=== PATIENT | female | born 1960 | race Caucasian/White ===

== ENCOUNTER 2018-08-09 07:14 | Emergency (ER) | payer OTHER ==
[~2018-08-09] VITALS: Ht 162.6 cm; Wt 75.8 kg
[~2018-08-09 07:14] MED LIST: AMBIEN CR 6.26.25 MG PO; AMLODIPINE BESYL5 MG PO; B COMPLEX-VITA1 EACH PO; BACLOFEN 10 MG10 MG PO; CALCIUM 600 +1 EAC1 PO; CLONAZEPAM 0.50.5 M1 PO; DESYREL300 MG PO; DICLOFENAC SODI75 M1 PO; FISH OIL 1,0001 EAC5 PO; FLEXERIL PO; LEVOTHYROXIN0.025 MG PO; NAPROSYN500 MG PO; NORCO 5-325 TA1 EACH PO; PREMARIN0.45 MG PO; PROZAC40 MG PO; SAPHRIS10 MG SL; SENNA PO; TRIAMTERENE-HC1 EAC1 PO; VALTREX 500 MG500 MG PO; VEETIDS 250MG250 M1 PO; VITAMIN D1000 UNI1 PO; WELLBUTRIN XL300 M1 PO; ZOCOR40 MG PO
[2018-08-09 07:41] LABS: ABSOLUTE NEUTROPHILS 5.2 thou/uL (1.4-8.2); BASOPHILS 0.7 % (0.0-2.0); EOSINOPHILS 3.2 % (0.0-3.0); HEMATOCRIT 35.1 % (37.0-47.0); MCH 32.6 pg (26.0-34.0); MCHC 34.3 g/dL (28.0-37.0); MCV 95.2 fL (80.0-100.0); MONOCYTES 5.9 % (1.0-8.0); PLATELET COUNT 285 thou/uL (150-400); POLYS 62.2 % (36.0-66.0); RBC 3.69 mil/uL (4.20-5.00); RDW 12.8 % (10.5-14.5); WBC 8.4 thou/uL (4.0-11.0)
[2018-08-09 07:48] LABS: ANION GAP 7 mmol/L (7-16); BUN 14 mg/dL (7-18); CALCIUM 8.7 mg/dL (8.5-10.1); CHLORIDE 104 mmol/L (98-107); CO2 27 mmol/L (21-32); CREATININE 1.1 mg/dL (0.6-1.0); GLUCOSE 113 mg/dL (74-106); POTASSIUM 4.9 mmol/L (3.5-5.1)
[2018-08-09 07:52] LABS: SODIUM 138 mmol/L (136-145)
[2018-08-09 07:56] LABS: URINE BILIRUBIN NEGATIVE (Negative); URINE BLOOD NEGATIVE (Negative); URINE CLARITY CLEAR; URINE COLOR YELLOW; URINE GLUCOSE-RANDOM* NEGATIVE (Negative); URINE KETONES NEGATIVE (Negative); URINE LEUKOCYTES-REFLEX 2+ (Negative); URINE NITRITE-REFLEX NEGATIVE (Negative); URINE PROTEIN (DIPSTICK) NEGATIVE (Negative); URINE UROBILINOGEN 0.2 E.U./dl (0.2-1.0)
[2018-08-09 07:57] LABS: MAGNESIUM 1.6 mg/dL (1.8-2.4); TROPONIN-I <0.06 ng/mL (<0.06)
--- NOTE | 2018-08-09 08:05 | EKG ---
[place] [address] [facility] [place] [address] ELECTROCARDIOGRAM REPORT Name: LAVONNEYUDI Room #: [facility] [id number] ������������������ Admission: 08/09/18 ������������������ Attend Phys: Discharge: ������������������ Date of : 56 Report #: [id number] ����������������������������������������������������������������� [id number] THIS REPORT FOR: //name// [facility] ED Test Date: 2018-08-09 Test Time: 07:27:28 Pat Name: YUDI BANERJEE Department: Room: Gender: F Chief Fundraising Officer: : 1960 Requested By: Bartolome Vogel Order Number: [id number] MD: Casey Potter Measurements Intervals [place] Rate: 47 P: 57 NE: 185 QRS: -10 QRSD: 101 T: 28 QT: 485 QTc: 429 Interpretive Statements Sinus bradycardia Otherwise normal tracing No previous ECG available for comparison Electronically Signed On 08-09-2018 8:05:35 CDT by Casey Potter [email or web address] ��������������������������������������������� <ELECTRONICALLY SIGNED> ���������������������������������������� By: Casey Potter MD, [facility] ��������������������������������������������� 08/09/18 0805 0727 0727 Casey Potter MD, FACC /EPI
[2018-08-09 08:08] LABS: CASTS None Seen /LPF (None Seen); CRYSTALS None Seen /LPF (None Seen); SQUAMOUS None Seen /LPF (0-3); URINE RBC None Seen /HPF (0-2); URINE WBC-REFLEX >25 Many /HPF (0-5)
[2018-08-09] MEDS ORDERED: KEFLEX500 M1 PO (08:24)
[2018-08-09 08:29] VITALS: BP 138/76
== END 2018-08-09 08:25 | disposition home or self-care (01) ==
LOC: ER 07:14
PROVIDERS: Emergency Medicine
DX: N39.0 Urinary tract infection, site not specified (principal); M54.2 Cervicalgia; I10 Essential (primary) hypertension; E05.90 Thyrotoxicosis, unspecified without thyrotoxic crisis or storm; Z90.710 Acquired absence of both cervix and uterus; Z98.890 Other specified postprocedural states; W18.30XA Fall on same level, unspecified, initial encounter; Y93.89 Activity, other specified; Y92.89 Other specified places as the place of occurrence of the external cause; Y99.8 Other external cause status

== ENCOUNTER 2020-11-09 19:31 | Inpatient (IN) | payer OTHER ==
[~2020-11-09 19:31] MED LIST changes: +KEFLEX500 M1 PO
[2020-11-10 04:28] VITALS: BP 156/78
--- NOTE | 2020-11-10 04:38 | NUR ---
PATIENT ADMITTED VIA WHEELCHAIR FROM ER. SHE WAS TRANSFERRED FROM [facility]. UPON ARRIVAL TO UNIT SHE IS AAOX4. SHE IS CALM AND COOPERATIVE. VSS. SIGNS IN VOLUNTARILY. STATES THAT SHE IS READY TO GET HELP AND STOP DRINKING. STATES THAT SHE HAS BEEN DRINKING A PINT OF VODKA FOR THE PAST 5-6 WEEKS. NOTED THAT SHE HAS SWOLLEN R GREAT TOR. PT STATES THAT SHE STEPPED ON SOME GLASS RECENTLY. PATIENT IS ABLE TO AMBULATE UNDER HER OWN POWER. DENIES PAIN OR NEEDS AT THIS TIME. NOTIFIED APPROPRIATE PHYSICIANS AND RECEIVED ADMISSION ORDERS. WILL CONTIUE TO MONITOR FOR CHANGES IN STATUS.
[2020-11-10 06:57] LABS: CHOLESTEROL 167 mg/dL (<200); HDL CHOLESTEROL 57 mg/dL (>40); LDL CHOLESTEROL 91 mg/dL (<100); SERUM ASSESSMENT Clear; TC:HDL 2.9 Ratio (Not establshd); TRIGLYCERIDE 99 mg/dL (<150); VLDL 20 mg/dL (<40)
[2020-11-10 08:57] VITALS: BP 159/66
[2020-11-10 13:22] LABS: FOLIC ACID 26.5 ng/mL (8.6-58.9)
--- NOTE | 2020-11-10 17:41 | NUR ---
Assumed pt care at 0700. Pt was alert and oriented to person and situation. Assessments completed, vss. Active bowel sound, lungs clear. Denies si/hi, co pain. Tylenol administered as ordered. Took meds whole, with thin liquid. Ambulates with slow gait. Pt prefered to use a w/c due to R foot pain. Pt c/o of concern of glass in her R foot. ad copy writer assess R foot, and did not note any entry of glass. DR Newberry was notified. Dr Newberry assess pt. R foot x-tray was ordered for pt. At this time pt is in wheeling self around the unit. Will continue to monitor.
[2020-11-10 20:06] VITALS: BP 122/68
[2020-11-11 01:06] LABS: GLYCOHEMOGLOBIN (HGB A1C) 4.7 % (4.8-5.6)
--- NOTE | 2020-11-11 01:35 | NUR ---
PATIENT HAS BEEN IN HER ROOM IN BED ALL EVENING. SHE STATES THAT HER RIGHT FOOT WAS NOT HURTING SINCE SHE'S BEEN OFF OF IT. XRAY OF RIGHT FOOT CAME BACK NEGATIVE OF ANY FINDINGS. PATIENT IS ON CIWA Q 4 HOURS. SHE STATES SHE HAS TOTALLY WITHDRAWN FROM THE ETOH. CIWA NEGATIVE AT THIS ASSESSMENT. PATIENT DENIES PAIN, SI/HI/AVH. SHE STATES SHE HAS NOT FELT DEPRESSED SHE WAS A DAY OR SO AGO. SHE IS A/0X3. SHE TOOK HER HS MEDS WHOLE WITH WATER. SHE STARTED NEW ORDER OF TRAZADONE 300MG AT TONIGHT. BED IN LOW POSITION AND BED ALARM IS ON. ONGOING CIWA ASSESSMENT Q4HR. PATIENT SLEEPING AT THIS TIME. CONTINUING TO MONITOR. DENIES ANXIETY AND HAS BEEN CALM AND COOPERATIVE.
[2020-11-11 06:35] VITALS: BP 139/71
--- NOTE | 2020-11-11 10:24 | NUR ---
PATIENT CARE ASSUMED AT 0700 - SLEEPING WHEN ARRIVING ON UNIT. APPROACHED IN ROOM AND ACKNOWLEDGED CHANGE OF SHIFT. QUIET - STATED NO DISCOMFORT CURRENTLY IN RIGHT FOOT BUT APPEARS TO BE FAVORING WHEN AMBULATING WITH SHUFFLE AND LIMP. PATIENT MED COMPLIANT. GOOD APPETITE ATE 75 PERCENT BREAKFAST. PATIENT HAS BEEN COMPLIANT WITH MASK REQUIREMENT. PARTICIPATED VERY LITTLE IN GROUP ACITIVITY OF MUSIC AND EXERCISE. HEART RATE STRONG AND STEADY AND LUNGS CLEAR ON AUSCULTATION. STATED NO BOWEL ISSUES. WILL CONTINUE TO MONTIOR PATIENT FOR SAFETY AND ANY CONCERNS AND ADDRESS ACCORDINGLY. VITALS STABLE WHEN TAKEN IN AM.
[2020-11-11 20:04] VITALS: BP 102/77
--- NOTE | 2020-11-12 00:44 | NUR ---
PATIENT WAS UP WALKING THE HALLS AND DINING ROOM. SHE DID NOT ENGAGE WITH OTHER PATIENTS. SHE ASKED TO USE THE PHONE TO CALL HER DAUGHTER. SHE WAS CONCERNED ABOUT HER CAT THAT SHE LEFT WITH A FRIEND. HELPED HER TRY TO FIND THE DAUGHTER'S PHONE NUMBER WITHOUT LUCK. PATIENT ANXIOUS ABOUT HER CAT AND WAS GIVEN LORAZEPAM 1MG PO WITH HER HS MEDS. PATIENT ASKED FOR A FRESH CHANGE OF CLOTHES AND WAS GIVEN THIS TO CHANGE INTO. SHE STATES HER FOOT IS NOT HURTING TONIGHT. PATIENT WENT TO BED ON HER OWN. BED IN LOW POSITON AND BED ALARM ON. PATIENT DENIES PAIN, SI/HI/AVH. SHE HAS BEEN WITHDRAWN BUT PLEASANT AND COOPERATIVE. PATIENT AMBULATES WITH STEADY GAIT. ROUTINE ROUNDS TO ASSESS SAFETY AND STATUS OF PATIENT.
[2020-11-12 10:04] VITALS: BP 102/48
--- NOTE | 2020-11-12 10:41 | NUR ---
Nutrition: REC daily vitamin
--- NOTE | 2020-11-12 12:17 | NUR ---
Assumed pt care at 0700. Pt was alert and oriented to person, place and situation. Calm and cooperative with care. Assessments completed, vss. Denies si/ hi, Denies pain at this time. Took meds whole with thin liquid, no difficulty noted. Ambulates with a slow gait. Makes need known to staff. Continent of bowel and bladder. Ate all meals. Independent with care. Pt is not a fall risk. At this time pt is in the day room finishing up her lunch. Will continue to monitor.
--- NOTE | 2020-11-12 14:43 | NUR ---
11-12-2020--2:45 PM--Call to [facility] ([phone]). They will fax me a [id number] of information for Marcella to sign and they will provide me with information when it is returned to them.
--- NOTE | 2020-11-12 15:28 | NUR ---
11-12-2020--3:30 PM--Patoient signed ATA for [facility] for verbal and written reports and re: who the psychiatrist and pillowcase cutter are. Faxed back to [facility].
--- NOTE | 2020-11-12 15:35 | NUR ---
11-12-2020--15:35 PM--call attempted to patients daughter Alem at number found in patient's chart. ([phone]) this number was a cell phone in [place]. His name was Regulo and he had never heard of an Alem. Will search further for information on patient's daughter.
[2020-11-12 20:23] VITALS: BP 115/56
--- NOTE | 2020-11-13 00:08 | NUR ---
Assumed pt's care this pm shift. Alert and oriented to her name. Know's she's in a hospital, voiced name as [facility]. Right at shift change, pt was asking to speak with her cat. Pt voiced that she was feeling dizzy. Nursing assisted pt to go sit in the dayroom. Pt took meds per emar. Pt currently in bed, sleeping. Nursing to continue to monitor.
--- NOTE | 2020-11-13 05:55 | NUR ---
Pt continues to sleep well in her room. Independent of toileting. Nursing to continue to monitor.
--- NOTE | 2020-11-13 08:56 | NUR ---
11-13-2020--[facility] faxed me a copy of a treatment plan that was done on 03/16/2020 over the phone. It contained very little information. Will attempt to call and talk to the Air Support Control Officer this date.
[2020-11-13 09:09] VITALS: BP 110/55
--- NOTE | 2020-11-13 09:12 | NUR ---
11-13-2020--9:10 AM--call to security to bring patient's phone up to the unit to see if patient can find her daughter's number on the phone so we can make contact with the family. Patient states her daughter is not so she has Brown as a last name and she lives in [place]. Security stated they would broing the phone up.
--- NOTE | 2020-11-13 12:18 | NUR ---
Assumed pt care at 0700. pt was alert and oriented to person, place and situation. Assessments completed, vss. Took meds whole with thin liquid, no difficulty noted. Ambulates with a w/c this shift. Calm, and cooperative with care. Pt was incontinent of bladder upon AM assessments. Cleaned and change by engineering technical writer. Pt was worried about her cat. Pt wanted staff to call her cat's phone. CT scan of the head was completed this shift. At this time pt is eating lunch. Will continue to monitor.
--- NOTE | 2020-11-13 14:50 | NUR ---
11-13-2020--14:50--Patient's phone was brought to [address] [place] [address] by security. The phone needed to be charged but daughters phone number was not on phone. There was a phone number for her ER contact Noemy Blair ([phone]) and her son Alex Brown ([phone]). I will attempt to call [facility] [place].
--- NOTE | 2020-11-13 14:55 | NUR ---
11-13-2020--15:00--Call returned to Ridge Hansen at [facility]. He reports hot lines have been made to the state by the hospital ([place]) where patient ends up when she gets drunk) and the [facility]. He stated he was hopeful the doctor would be filling out the paperwork to get patient a guardian. He stated all the patient did "was ride around in her electric w/c and drink". I explained I didn't know what the doctor would decide to do he was still evaluating her. He offered further help if needed.
--- NOTE | 2020-11-13 15:00 | NUR ---
11-13-2020--15:00--[employer] international trade compliance manager called security to come and get Elizabeths personal belongings. They said they would come and get them but it would be a little while. They were left at the nurses station.
[2020-11-13 19:04] VITALS: BP 119/69
--- NOTE | 2020-11-14 04:33 | NUR ---
PATIENT IS ALERT AND ORIENTED. MODERATE ASSISTANCE WITH CARE. ABLE TO VERBALIZE NEEDS. SHE DENIES PAINS/SI/AVH/HI. SHE TOOK HER MEDS WHOLE, LUNGS ARE CLEAR BS ACTIVE X4 QAUDS. ABD IS SOFT NON TENDER. BED IS LOW AND LOCKED. PATINET IS CONTINET OF BOWEL AND BLADDER.Q 12 MINUTES CHECKS IS ONGOING. CONTINUE CARE
--- NOTE | 2020-11-14 07:48 | NUR ---
11-14-2020--7:30 AM--Son's phone number was obtained [facility] patient's help using her cell phone. Son's name is Jose Cruz ( ). Call made to son and advised him his darreler was a patient here. He talked about her beng as she is for a lot of years and he was under the assumption that patient was already in a NH and was assisted in finding one with her CM from [facility]. I inquired if she had a DPOA and he stated his sister used to be but her mother's behaviors had become burdensome to her and she stepped out of the situation. Jose Cruz stated he would be willing to be the DPOA if she won't choose a memory care unit on her own. He reports he works from home and the best time to call him is between 10-12. Told him physician may want to talk to him and have a family meeting and he was agreeable to this. He states if she refuses to choose a safe home, or make him DPOA he would like to talk to her and he can probably get her to listen to him. Information will be provided to Doctor and team this AM.
[2020-11-14 09:04] VITALS: BP 125/70
[2020-11-14 09:05] VITALS: BP 125/70
[2020-11-14 10:08] LABS: HIV ANTIBODY Non Reactive (Non Reactive)
--- NOTE | 2020-11-14 14:23 | NUR ---
11-14-2020--10:45 AM--Call to son to determine if his sister had paperwork showing her as DPOA. He stated he would text her to find out and we set up a family meeting for tomorrow at 10:00 AM.
--- NOTE | 2020-11-14 14:57 | NUR ---
FLAT AFFECT-MINIMAL VERBAL RESPONSES-RESPONSES TO QUESTIONS ASKED ARE [id number] ACKNOWLEDGE FEELING DEPRESSED AND ANXIOUS AT TIMES WHEN ASKED ABOUT WHAT HAD LED TO ADMISSION HERE-ALTHOUGH RATES ANXIETY CURRENTLY A 6 AND DEPRERSSION A 3 OR 4. DENIES SI/SH/HI-GAIT UNSTEADY AT TIMES-VS WNL.
[2020-11-14 19:37] VITALS: BP 126/77
--- NOTE | 2020-11-14 22:30 | NUR ---
PATIENT CARE WAS RESUMED AT 1900. SHE IS ALERT AND ORIENTED X3 AND SHE IS CONTINENT OF BOWEL AND BLADDER.SHE IS ABLE TO VERBALIZE HER CONCERN. DENIES AND DISCOMFORT AT THIS TIME. SHE TOOK HER MEDS WHOLE. BED IS LOW, LOCKED AND ALARMED. [id number] CHECK IS ONGOING. NO CONCERN NOTED AT THIS TIME CONTINUE CARE.
[2020-11-15 09:18] VITALS: BP 117/76
--- NOTE | 2020-11-15 11:27 | NUR ---
11-15-2020--10:00 AM--Met with patient, and Dr. Grant and called patient's son to join in the family meeting about who could be named as a DPOA. Son was agreeable to being the DPOA and Dr. Puente explained to son and patient why this was necessary. Marcella made her son Jose Cruz her DPOA. I read the paperwork to her and asked about her understanding. Paperwork was completed and the Supervisor Heavy Equipment (who is a notary) came up and notarized the paper. A copy was given to patient and a copy was given to oil recovery unit operator to place in patients' file. Director, Wendy Morrissey, scanned the document into the copier and e-mailed it to Jose Cruz at [email or web address].
--- NOTE | 2020-11-15 13:56 | NUR ---
11-15-2020--13:30--Woke patient up and asked her to come to group. She wanted to sleep.
--- NOTE | 2020-11-15 17:40 | NUR ---
PATIENT IS ALERT AND ORIENTED X4, PATIENT SITTING ON A WHEEL/CHAIR IN THE DAY ROOM WHEN CARE WAS ASSUMED AT 0700, PATIENT CALM AND PLEASANT WITH CARE, ACTIVE BOWEL SOUND WITH SOFT ABDOMEN, BREATH SOUND CLEAR, SHE COMPLAINED OF PAIN AND TYLENOL PRN WAS GIVEN, SHE TOOK HER MEDICATION WHOLE, SHE IS CONTINENT OF BOWEL AND BLADDLER, SHE AMBULATE WITH WHEEH/CHAIR DUE TO SOME WEAKNESS, SHE DENIES SI/HI
[2020-11-15 19:33] VITALS: BP 116/69
[2020-11-15 21:06] LABS: SYPHILIS AB Non Reactive (Non Reactive)
--- NOTE | 2020-11-16 00:45 | NUR ---
PATIENT CARE WAS RESUMED AT 1900. SHE WAS IN BED ALERT AND ORIENTED. MODERATE ASSIST WITH CARE. TOOK HER PILLS WHOLE. SHE DENIES PAINS/SI/AVH/HI. BS ACTIVE X4 QUAD. LUNGS ARE CLEAR X 4 QUAD. Q 12MINUTES CHECK ONGOING. BED IS LOW, LOCKED AND ALARMED. CONTINUE CARE
--- NOTE | 2020-11-16 01:02 | NUR ---
ASSUMED CARE OF PATIENT AT 0015. PATIENT CURRENTLY SLEEPING WITH EYES CLOSED. RESPIRATIONS EVEN AND UN LABORED. BED IN LOW POSITION. PATIENT APPEARS TO BE IN COMFORTABLE POSITION ON LEFT SIDE. ROUTINE ROUNDS TO ASSESS STATUS AND SAFETY OF PATIENTS.
--- NOTE | 2020-11-16 06:20 | NUR ---
PATIENT UP IN WC. SHE STATES SHE WET THE BED AGAIN. STATES SHE HAS BEEN DOING THIS LATELY. DENIES BURNING OR URGENCY OF URINATION. PATIENT A/0X2 THIS MORNING. DENIES PAIN. PATIENT SITTING QUIETLY IN DINING ROOM WATCHING TV. CONTINUING TO MONITOR.
[2020-11-16 08:28] VITALS: BP 114/81
--- NOTE | 2020-11-16 13:53 | NUR ---
11-16-2020--GROUP--Marcella did not attend.
--- NOTE | 2020-11-16 13:53 | NUR ---
RT Progress Note- Marcella has been present in the day room throughout each day, as well as for most recreation therapy groups. Marcella has begun contributing to groups more throughout the last half of this week, however remains guarded and reserved. She displays some confusion and difficulty understanding tasks and requires thourough directions to be able to participate to her best ability. She has not displayed aggression. EMBROIDERY SPECIALIST will encourage continued participation throughout her admission.
--- NOTE | 2020-11-16 14:15 | NUR ---
CARE OF PATIENT WAS ASSUMED AT 0700, PATIENT SITTING ON THE BED, ALERT AND ORIENTED X3, COOPERATIVE WITH CARE, LUNGS CLEAR, ACTIVE BOWEL SOUND WITH SOFT ABDOMEN, VSS, SKIN INTACT, NO EDEMA NOTED, PATIENT TOOK MEDICATION WHOLE, SHE REFUSED TO WALK WITH THE PHYSICAL THERAPY, PATIENT AMBULATE ON A STEADY GAIT, CONTINENT OF BLADDER AND BOWEL, NO BEHAVIOR CHANGE, PATIENT PATICIPATED IN GROUP AND ATE ALL HER MEAL IN THE ROOM, SHE DENIES SI/HI
[2020-11-16 19:48] VITALS: BP 92/56
--- NOTE | 2020-11-17 02:57 | NUR ---
PATIENT IS AAOX3. SHE IS WITHDRAWN AND ISOLATES TO HER ROOM. EXHIBITS FLAT AFFECT. STATES THAT SHE IS DOING OKAY. TOOK ALL OF HER MEDICATIONS WITHOUT PROMPTING. DENIES PAIN OR NEEDS. VITAL SIGNS STABLE. NO S/S OF WITHDRAWAL SYMPTOMS.
[2020-11-17 09:57] VITALS: BP 107/66
--- NOTE | 2020-11-17 16:36 | NUR ---
HAS BEEN OUT OF ROOM MAJORITY OF AM-DID REPORT LE HURTING AND IS REQUESTING TYLENOL PO PRN AT APPROX 1100 FOR THIS-TYLENOL 650MG GIVEN PO PRN WITH VERBALIZED GOOD RESULTS-LEGS ELEVATED IN RECLINER WHICH HELPED WELL-DOES HAVE TRACE PEDAL EDEMA I ANKLES/FEET BILAT. LATER REQUESTED MUSCLE RELAXANT FOR LEGS HURTING AND FLEXERIL 10MG GIVEN PO PRN AT 1530-WHEN ASKED AT 1600 IF THIS HAD HELPED STATES "I JUST WANTED TO TAKE A NAP"DID
[2020-11-17 19:54] VITALS: BP 86/32
[2020-11-17 21:31] LABS: URINE BILIRUBIN NEGATIVE (Negative); URINE BLOOD NEGATIVE (Negative); URINE CLARITY CLEAR; URINE COLOR YELLOW; URINE GLUCOSE-RANDOM* NEGATIVE (Negative); URINE KETONES NEGATIVE (Negative); URINE LEUKOCYTES-REFLEX NEGATIVE (Negative); URINE NITRITE-REFLEX NEGATIVE (Negative); URINE PROTEIN (DIPSTICK) NEGATIVE (Negative); URINE SPECIFIC GRAVITY 1.015 (1.005-1.035); URINE UROBILINOGEN 0.2 E.U./dl (0.2-1.0)
--- NOTE | 2020-11-18 01:45 | NUR ---
PATIENT RESTING IN HER ROOM AAOX2. STATES THAT SHE HAS HAD A GOOD DAY. DOES NOT INTERACT MUCH WITH PEERS. DENIES PAIN OR NEEDS. SHE CONTINUES TO UTILIZE WHEELCHAIR FOR TRANSPORTATION. VITAL SIGNS WNL. COMPLIANT WITH MEDICATION AND TREATMENT. NO S/S OF DISTRESS. PATIENT IS CALM AND COOPERATIVE. WILL CONTINUE TO MONITOR FOR CHANGES IN STATUS.
[2020-11-18 09:38] VITALS: BP 112/66
--- NOTE | 2020-11-18 14:39 | NUR ---
patient care assumed at 0700, patient alert and oriented x3, patient sitting on the bed awake, calm and pleasant with assessment, breath sound clear, vss, active bowel sound with soft abdomen, patient complained of pain tylenol was given, she took her medication whole, patient ambulate with wheel chair, she can be incontinent some times, no behavior change, patient denies si/hi, will continue to monitor for safety and behavior.
[2020-11-18 19:25] VITALS: BP 137/69
--- NOTE | 2020-11-19 02:40 | NUR ---
PATIENT RESTING IN THE COMMON AREA UPON ENTRANCE TO THE UNIT. PT IS AAOX3. SHE IS COOPERATIVE BUT IRRITABLE TONIGHT. STATES THAT SHE WAS GOING TO BED AND REQUESTED HER HS MEDICATIONS. PT TOOK ALL MEDICATIONS PRESCRIBED. NO S/S OF DISTRESS NOTED. DENIES PAIN OR NEEDS. WILL CONTINUE TO MONITOR FOR CHANGES IN STATUS.
--- NOTE | 2020-11-19 08:37 | NUR ---
11-19-2020--08:00 AM--Call to patient's son who gave me the name of one NH with a memory care unit that he would like me to contact--Call to [facility] to talk to Shahla on marketing ([phone]). Not in message left to return my call to determine if they take Medicaid and of there is an opening. (This was the only one he called this weekend and he wasn't able to talk to anyone.) He had no other suggestions
[2020-11-19 09:03] VITALS: BP 110/70
--- NOTE | 2020-11-19 16:14 | NUR ---
Assumed pt care at 0700. Pt was alert and oriented to person, situation and time. Assessments completed, vss. Denies si/hi, c/o pain. Pain Meds administered as ordered. Took meds whole, no difficulty noted. Calm and cooperative with care. Continent of bowel and bladder. Ambulates with a slow gait due to pain in her right foot. Attended groups, worked with the physical therapy. At this time pt is in the day room. Will continue to monitor.
[2020-11-19 19:15] VITALS: BP 106/73
--- NOTE | 2020-11-19 21:25 | NUR ---
AT ONSET OF ODD JOB LABORER, PT WAS RESTING IN BED AWAKE. THIS SHIFT PT WAS ALERT AND ORIENTED TO SELF, PLACE, AND TIME. WHEN ASKED WHAT BROUGHT PT TO THE HOSPITAL PT STATED SHE BROUGHT HERSELF TO THE HOSPITAL BECAUSE SHE WAS DETOXING AND DID NOT WANT TO HAVE "CONVULSIONS." PT WAS CALM, PLEASANT AND COOPERATIVE. COMPLIANT WITH MEDICATION AND VITAL SIGNS. PT DENIED SI, HI AND AVH. PT STATED SHE FELT A LITTLE DEPRESSED BECAUSE SHE MISSED HER CAT. PT STATED SHE IS NOT SURE HOW HER CAT IS DOING AND NO ONE IS TAKING CARE OF THE CAT WHILE SHE IS IN THE HOSPITAL. WHEN ASKED WHERE SHE WILL BE STAYING AFTER SHE LEAVES [facility], PT RESPONDED SHE DOES NOT KNOW YET BUT WILL PROBABLY GO TO A JAIL. PT'S AFFECT WAS CONSTRICTED BUT PT REPORTED HER MOOD WAS POSITIVE. FALL PRECAUTIONS IN PLACE.
[2020-11-20 09:03] VITALS: BP 107/71
--- NOTE | 2020-11-20 11:14 | NUR ---
11-20-2020--11:00 AM--More referrals for patient were sent this AM. Call [facility] who stated they do not accept [place] Medicaid.
--- NOTE | 2020-11-20 13:43 | NUR ---
Call received from Leticia who is taking care of this patient's cat. Leticia reports that the cat is out of food. Also reports that patient was going to be taking the cat to a longterm to surrender the cat. Leticia reports that she needs consent from patient in order to surrender the cat. Due to DPOA being enacted, spoke with SCOTT Billingsley. Jose Cruz reports that there is not a possibility of patient keeping the cat. Jose Cruz will call Leticia at [phone] to speak about the cat.
--- NOTE | 2020-11-20 14:54 | NUR ---
11-20-2020--13:00--GROUP--Patient had gone to her room and was lying down after lunch. I told her group was about to start and asked her to join us. Patient participated appropriately and fully in the group sharing thoughts and situations about our topic of anger and where in our bodies we first start feeling anger.
--- NOTE | 2020-11-20 14:57 | NUR ---
11-20-2020--15:00--Patient came to my office and knocked on the door and wanted to talk to me. She stated she has been incontinent for a couple of nights and thought she might have a yeast infection. I went with her to the nurses station to report this to the RN so she would tell the physician.
--- NOTE | 2020-11-20 15:55 | NUR ---
11-20-2020--16:00--Call from Cat and one of her facilities may have an opening. She needed a copy of the DPOA paperwork. Copy faxed to her.
--- NOTE | 2020-11-20 17:42 | NUR ---
Assumed pt care at 0700. Pt was alert and oriented to person and time. Assessments completed, vss. lungs clear, active bowel sound. Denies si/hi, c/o pain. Pain meds and ice packs administered as ordered. Took meds whole, no difficulty noted. Ambulates with a walker. Continent of bowel and bladder this shift. Make needs known to staff. Participated in groups. At this time, no sign of acute distress noted. Pt is in the day room currently. WILL CONTINUE TO MONITOR.
[2020-11-20 19:49] VITALS: BP 93/49
--- NOTE | 2020-11-21 00:44 | NUR ---
AT ONSET OF SHIFT PT WAS RESTING IN BED AWAKE. THIS SHIFT PT WAS ALERT AND ORIENTED TO SELF AND PLACE. AFFECT WAS BROAD. PT WAS OVERALL CALM AND PLEASANT, BUT EXPRESSED FRUSTRATION WITH HAVING A ROOMMATE AND BEING WOKEN UP THROUGHOUT THE NIGHT DUE TO STAFF ROUNDING. PT DENIED SI, HI AND AVH. PT WAS COMPLIANT WITH MEDICATION AND VITAL SIGNS. PT STATED THAT SHE HAS BEEN "WETTING THE BED" A LOT. RN PROVIDED PT WITH INCONTINENT BRIEFS. PT STATED SHE THINKS SHE HAS A YEAST INFECTION. PT WAS TREATED FOR YEAST INFECTION. RN ASKED PT IF SHE THINKS SHE HAS A YEAST INFECTION OR A UTI. PT RESPONDED "I THINK I HAVE A UA." PT AMBULATES INDEPENDENTLY.
--- NOTE | 2020-11-21 10:35 | NUR ---
11-21-2020--10:35--Patient came to my office stating she hasn't had her clonipin since she's been here. (States she got here the 17?). Will ask Doctor about it.
--- NOTE | 2020-11-21 13:22 | NUR ---
PATIENT HAS BEEN UP, AND OUT ON THE UNIT, AMBULATE WITH ASSIST OF WALKER. PATIENT TOOK ALL MEDICATION WHOLE WITHOUT DIFFICULTY, SHE IS EATING MEALS, AND DRINKING FLUID WELL. PATIENT DENIES SUICIDAL/HOMICIDAL IDEATION, SHE DENIES DEPRESSION, RATES ANXIETY 03/04. PATIENT REQUESTING TO HAVE DR. NASIMA ABBASI AWARE, NO NEW ORDER NOTED AT THIS TIME. PATIENT DENIES AUDITORY/VISUAL HALLUCINATION. SHE RATES RIGHT LEG PAIN /, ICE PACK APPLIED. AFFECT IS SAD, MOOD IS EUTHYMIC. NO SIGN OF ACUTE DISTRESS NOTED AT THIS TIME, WILL MONITOR FOR SAFETY.
--- NOTE | 2020-11-21 13:38 | NUR ---
11-21-2028--13:45--call to Jose Cruz (DPOA & son) to advise we had found a placement for his mom. I advised him as soon as I found out the details of the facility (address and phone number, etc.) I would let him know. He was agreeable to this.
[2020-11-21 18:17] LABS: URINE BILIRUBIN NEGATIVE (Negative); URINE BLOOD NEGATIVE (Negative); URINE CLARITY SL CLOUDY; URINE COLOR YELLOW; URINE GLUCOSE-RANDOM* NEGATIVE (Negative); URINE KETONES NEGATIVE (Negative); URINE LEUKOCYTES-REFLEX 3+ (Negative); URINE NITRITE-REFLEX NEGATIVE (Negative); URINE PROTEIN (DIPSTICK) NEGATIVE (Negative); URINE UROBILINOGEN 0.2 E.U./dl (0.2-1.0)
[2020-11-21 18:49] LABS: SQUAMOUS 4-10 Moderate /LPF (0-3); URINE WBC-REFLEX >25 Many /HPF (0-5)
[2020-11-21 18:50] LABS: URINE RBC 1-2 Rare /HPF (NONE SEEN)
[2020-11-21 19:43] VITALS: BP 114/63
--- NOTE | 2020-11-21 21:59 | NUR ---
PATIENT RESTING IN HER ROOM AAOX2. DENIES PAIN OR NEEDS. STATES THAT SHE IS TIRED AND READY FOR MEDICATION. PT STATES THAT SHE HAS NOT WASHED HER HAIR SINCE THE DAY THAT SHE WAS ADMITTED. SGE IS COOPERATIVE AND FOLLOWING ALL COMMANDS. NO DISTRESS NOTED. SAFETY PRECAUTIONS IN PLACE. WILL CONTINUE TO MONITOR FO RCHANGES IN STATUS.
[2020-11-22 09:07] VITALS: BP 109/70
--- NOTE | 2020-11-22 10:08 | NUR ---
11-22-2020--10:15--Patient wanted to talk to the Doctor. I advised the Doctor and she waited in her room for him. She states all he gave her was one pill for her yeast infection. I explained to her that is all it takes these days to get rid of a yeast infection. She stated her understanding but then moved on to her leg hurting and ruminating about her cat. (Her memory is short and I anticipate some of these same questions will need to be answered.) She wanted to call he son Katiuska (DPOA). He was very kind and loving when answering her questions and reassuring her that her cat is okay. He stated her neoighbors have been caring for it and it is going to the pound today to be adopted. She was emphatic about wanting her cat back and wanting to see it. I explained that probably was not going to happen. She states she has had the cat for 10 years. I assured her some good family/person will adopt him and he will be fine. I also explained that her next placement probably won't let her have a cat. She stated her understanding and again stated she wanted him back or to see him. Tatiana (RN) was able to convince patient to take a shower. (She continues to look very unkempt and ADL's may be something staff at the placement will continually hae to cue and redirect her to do.) Walked patient to nurses' station and advised her she needs to ask for things she needs or wants as nobody can read her mind.
[2020-11-22 10:33] VITALS: BP 109/70
--- NOTE | 2020-11-22 11:15 | NUR ---
RT Progress Note- Marcella has been present in both the milieu and recreation therapy groups throughout her second week of admission. She has become more animated and vocal in group discussions which is a great improvement. She continues to frequently talk about her cat but is able to address other concerns however including futeristic goals after discharge such as an improved living environment and healthier lifestyle. She does remain disoriented at times and is accepting of therapist reorienting her. MATERIAL EXPEDITER will continue to encourage patient to further reach goals.
--- NOTE | 2020-11-22 11:55 | NUR ---
Resummed care from overnight shift this am. Patient was siting in room on bed quietly resting. All medications were given to patient. Patient present calm and cooperative and stated that she took a shower this morning. Denies si/hi/auditory hallucinations at present. Bowel sounds WNL and present. Lung sounds clear bilaterally. Participated in groups. No further concerns at this time. Will continue to monitor patient for safety and behaviors.
[2020-11-22 19:14] VITALS: BP 110/68
--- NOTE | 2020-11-23 01:22 | NUR ---
PATIENT HAS BEEN RESTING IN BED SINCE BEGINNING OF SHIFT. PATIENT IS ALERT AND ORIENTED X 4, CONTINENT OF BOWEL AND BLADDER, MEDICATION COMPLIANT AND GAIT IS STEADY AND STRONG. PATIENT DENIES ALL PSYCH.
[2020-11-23 08:10] VITALS: BP 118/58
[2020-11-23 09:03] VITALS: BP 118/58
--- NOTE | 2020-11-23 09:24 | NUR ---
Resummed care from community health consultant this am. Patient was in room during this time. Patient was oriented 4x. Patient denies any hallucinations, si, or hi at this time. No pain was voiced at the time of this assessment. Lungs clear bilaterally. Bowel sounds present. Patient was assisted with breakfest and medications, and provided liquids at [facility] table. No further concerns as of the time of this report.
--- NOTE | 2020-11-23 11:16 | NUR ---
11-23-2020--11:00--ALLISON Roger completed this date. Will get MD to sign the paper.
--- NOTE | 2020-11-23 11:45 | NUR ---
RESUMMED CARE FROM OVERNIGHT SHIFT THIS AM, PATIENT ALERT ORIENTED TIMES 2-3. PATIENT DENIES SI/HI/AH/VH AT PRESENT PATIENT STATES SHE DID SLEEP WELL DO TO A LOT OF NOISE. PATIENTS ABDOMEN SOFT BOWEL SOUNDS PRESENT PATIENTS LUNGS CLEAR. PATIENT WAS COMPLAINING ABOUT HER RT KNEE AND WAS GIVEN ICE AND TYLENOL. PATIENT PARTICIPATES IN GROUPS CALM COOPERATIVE PATIENT HAS NOT DISPLAYED ANY BEHAVIORS. WILL CONTINUE TO MONITOR PATIENT FOR SAFETY AND BEHAVIORS.
[2020-11-23 19:30] VITALS: BP 116/67
--- NOTE | 2020-11-24 00:23 | NUR ---
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 THIS SHIFT PT WAS ALERT AND ORIENTED TO SELF, PLACE, AND TIME. PT'S INSIGHT APPEARS TO REMAIN LIMITED. PT WAS COMPLIANT WITH MEDICATION AND VITAL SIGNS. PT DENIED SI, HI AND AVH. PT STATED SHE IS GOING TO LEAVE THURSDAY. PT SOUNDS HAPPY ABOUT THIS. PT STATED SHE HAD A DIFFICULT DAY BECAUSE HER CAT IS GOING TO BE ADOPTED. PT IS HOPEFUL SHE WILL BE ABLE TO GET A NEW CAT SOMEDAY. PT WAS HAPPY THAT HER CAT IS OKAY. FALL PRECAUTIONS ARE IN PLACE.
[2020-11-24 09:20] VITALS: BP 99/65
[2020-11-24 10:23] VITALS: BP 130/78
--- NOTE | 2020-11-24 13:06 | NUR ---
ASSUMED PATIENT CARE AT 0700 FROM OVERNIGHT SHIFT. PATIENT WAS IN BED UPON NURSE ARRIVAL. PATIENT HAS ATTENEDED GROUP AND COMES TO THE DAYROOM FOR MEALS. PATIENT EXPRESSED HAPPINESS ABOUT BEING DISCHARGED ON THURSDAY. PATIENT DENIED SI/HI/AH/VH. PATIENT STATED SHE DID SLEEP WELL, BUT WAS HAVING SOME ANXIETY. PATIENT DID WAKE UP THIS MORNING INCONTINENT AND STATED SHE WAS HAVING BURNING PAIN DURING URINATION. PATIENT WAS UPSET WHEN FINDING OUT HER ANTIBIOTICS WERE D/C AND ASKED TO TALKED WITH HER DOCTOR. PATIENT DID REPORT PAIN IN HER RIGHT UPPER LEG AT 1200 AND TRAMADOL WAS ADMINISTERED. WILL CONTINUE TO MONITIOR PATIENT FOR SAFETY AND BEHAVIORS. FALL PREVENTION SAFETY IN PLACE.
--- NOTE | 2020-11-24 16:44 | NUR ---
Check in with pt. Pt expresed everyone not being treated the same. Pt. stated one pt. is allowed to drink coffee all the time while others are not. The pt. also expressed not getting a smoking patch. The SW asked the nurse about the patch. The nurse stated she would check in on the pt. The pt. was informed by the SW that the nurse would check in regarding the patch.
[2020-11-24 19:26] VITALS: BP 119/71
--- NOTE | 2020-11-25 02:39 | NUR ---
PATIENT HAS BEEN IN BED SINCE BEGINNING OF SHIFT. PATIENT IS MEDICATION COMPLIANT, IS ALERT AND ORIENTED X 4, RATES ANXIETY 7/10 BUT DENIES SI/HI. PATIENT IS INCONTINENT OF URINE ONLY AT NIGHT.
[2020-11-25 09:28] VITALS: BP 105/52
--- NOTE | 2020-11-25 10:55 | NUR ---
Faxed patient updates
--- NOTE | 2020-11-25 14:20 | NUR ---
PT ALERT AND ORIENTED TIMES FOUR. VSS. PT DENIES SI/HI/AH/VH. PT TOLERATES MEDS AND MEALS. PT ATTENED GROUP THIS MORNING. PT INTERACTS WELL WITH STAFF AND PEERS. PLANS FOR DISCHARGE TOMORROW. PT PROGRESISNG TOWRADS POC GOALS.
--- NOTE | 2020-11-25 15:25 | NUR ---
Check in with pt. during group. Pt. was able to identify some protective factors. Pt. feels she has a sense of purpose and healthy coping skills. The pt. is very concerned about rebuilding social supports in a new environment.
[2020-11-25 19:30] VITALS: BP 80/63
[2020-11-25 21:30] VITALS: BP 110/89
--- NOTE | 2020-11-26 02:04 | NUR ---
PATIENT CARE WAS RESUMED AT 1900. SHE WAS IN BED ALERT AND ORIENTED WITH SOME FORGETFULNESS. SHE IS ABLE TO VERBALIZE SOME NEEDS. LUNGS ARE CLEAR, BS ACTIVE X4 QUADS. SHE IS INCONTINENT OF BLADDER. PATIENT KEITH D A LOW BLOOD PRESSURE AND WAS RECHECKED 110/89. SHE TOOK HER MEDS WHOLE. DENIES PAINS/AVH/SI/HI. BED IS LOW, LOCKED AND ALARMED.
[2020-11-26 09:33] VITALS: BP 113/72
--- NOTE | 2020-11-26 09:49 | NUR ---
PATIENT CARE RESUMED AT 0700. APON ROUNDS PATIENT WAS UP AND IN THE DAYROOM. PATIENT STATED SHE SLEPT WELL AND DENIED ANY SI/HI/AH/VH. PATIENT STATED SHE HAD SOME ANXIETY SCALED A 5 FROM 0-10. PATIENT STATED SHE HAD NO NEW PAIN BUT COMPLAINED OF PAIN IN THE RIGHT LEG/THIGH. PATIENT RATED THE PAIN A 5 ON A SCALE OF 0-10. PATIENTS LUNGS SOUNDS ARE CLEAR AND ABDOMEN IS SOFT WITH BOWEL SOUNDS PRESENT. PATIENT STATED SHE HAD A BOWEL MOVEMENT YESTERDAY EVENING 11-25-20. PATIENT STATED SHE WAS CONCERNED ABOUT GOING TO HER NEW HOME TODAY BECAUSE SHE IS UNINFORMED OF WHERE SHE IS GOING. NURSING EDUCATION WAS TAKEN PLACE. PATIENT IS A&O*3 AND FALL PREVENTIONS ARE IN PLACE. WILL CONTINUE TO MONITOR FOR BEHAVIORS AND SAFETY.
--- NOTE | 2020-11-26 10:35 | NUR ---
11-26-2020--10:30--Call to [facility] ([phone]) to talk to [facility]. Private (cell phone) number given--[phone]--Left a message re: patient's need for CM and am individual therapist. (PHP program if that can be arranged since she is going to the memory care unit.
[2020-11-26] MEDS ORDERED: NICOTINE1 EAC2 TRANSDERM (10:55)
[2020-11-26] MEDS ORDERED: ZOCOR40 MG PO (10:55)
[2020-11-26] MEDS ORDERED: FLEXERIL PO (10:56)
[2020-11-26] MEDS ORDERED: NORVASC5 MG PO (10:57)
[2020-11-26] MEDS ORDERED: FISH OIL 1,0001 EAC5 PO (10:57)
[2020-11-26] MEDS ORDERED: TRAMADOL 50 MG50 MG PO (10:58)
[2020-11-26] MEDS ORDERED: NAPROSYN500 MG PO (10:58)
[2020-11-26] MEDS ORDERED: GABAPENTIN 100100 MG PO (10:58)
[2020-11-26] MEDS ORDERED: PROZAC40 MG PO (11:02)
[2020-11-26] MEDS ORDERED: DESYREL300 MG PO (11:02)
[2020-11-26] MEDS ORDERED: PEPCID20 MG PO (11:03)
[2020-11-26] MEDS ORDERED: CALCIUM 600 +1 EAC1 PO (11:03)
[2020-11-26] MEDS ORDERED: SYNTHROID50 MCG PO (11:04)
[2020-11-26] MEDS ORDERED: B-12500 MCG PO (11:08)
[2020-11-26] MEDS ORDERED: VITAMIN D3125 MC1 PO (11:10)
[2020-11-26] MEDS ORDERED: PREMARIN0.625 MG PO (11:11)
[2020-11-26] MEDS ORDERED: TRAZODONE HCL50 MG PO (11:15)
[2020-11-26] MEDS ORDERED: SYNTHROID25 MC1 PO (11:16)
[2020-11-26] MEDS ORDERED: SEROQUEL 25 MG25 M1 PO (11:16)
[2020-11-26] MEDS ORDERED: VALACYCLOVIR500 MG PO (11:20)
--- NOTE | 2020-11-26 12:13 | NUR ---
PATIENT REPORT GIVEN TO CAESAR WANG AT [facility] AND 1200.
--- NOTE | 2020-11-26 13:24 | NUR ---
PATIENT WAS DISCHARGED FROM OUR UNIT AND TRANSFERED OVER TO [facility] FOR TRANSPORTATION TO [facility]. PATIENT WAS DISCHARGED WITH ALL ITEMS SHE WAS ADMITTED WITH. PATIENT LEFT FACILITY AT 1300 IN A WHEELCHAIR WITH YELLOW PACKET FOR NEW FACILITY. ALL INFORMATION HAS BEEN FAXED TO [facility] IN REGARDS TO PATIENT CARE. PATIENT WAS WALKED OUT OF THE HOSPITAL WITH STAFF AND ASSISTED INTO TRANSPORTATION VEHICILE.
[2020-11-26 13:34] VITALS: BP 113/72
== END 2020-11-26 12:30 | DRG 884 ==
LOC: SBH
PROVIDERS: Internal Medicine; Nurse Practitioner Psychiatric/Mental Health; ADMIT Psychiatry & Neurology Psychiatry; ATTEND Psychiatry & Neurology Psychiatry
DX: F01.51 Vascular dementia, unspecified severity, with behavioral disturbance (principal); N39.0 Urinary tract infection, site not specified; F10.239 Alcohol dependence with withdrawal, unspecified; F39 Unspecified mood [affective] disorder; F32.9 Major depressive disorder, single episode, unspecified; M54.31 Sciatica, right side; Z60.2 Problems related to living alone; M19.90 Unspecified osteoarthritis, unspecified site; I10 Essential (primary) hypertension; G47.00 Insomnia, unspecified; E78.5 Hyperlipidemia, unspecified; R79.89 Other specified abnormal findings of blood chemistry; B95.2 Enterococcus as the cause of diseases classified elsewhere; F10.229 Alcohol dependence with intoxication, unspecified; E05.90 Thyrotoxicosis, unspecified without thyrotoxic crisis or storm; F17.210 Nicotine dependence, cigarettes, uncomplicated; Z20.822 Contact with and (suspected) exposure to COVID-19; Z23 Encounter for immunization; Z87.828 Personal history of other (healed) physical injury and trauma; Z79.899 Other long term (current) drug therapy; Z90.710 Acquired absence of both cervix and uterus; Z98.891 History of uterine scar from previous surgery; Z81.8 Family history of other mental and behavioral disorders; Z81.3 Family history of other psychoactive substance abuse and dependence
CPT/HCPCS: 10880